=== PATIENT | female | born 1995 | race Caucasian/White ===

== ENCOUNTER 2017-01-09 21:13 | Emergency (ER) | payer MEDICAID ==
[~2017-01-09] VITALS: Ht 170.2 cm; Wt 75.5 kg
[2017-01-09 21:21] VITALS: BP 146/89
--- NOTE | 2017-01-09 22:20 | NUR ---
PT TAKEN TO [facility] [facility]
--- NOTE | 2017-01-09 22:47 | NUR ---
PT RETURN FROM [facility] TO LOBBY
--- NOTE | 2017-01-09 23:17 | NUR ---
PT TAKEN TO BED 7
--- NOTE | 2017-01-09 23:25 | NUR ---
21Y F CAME TO ER C/O OF VAGINAL BLEEDING FOR A WEEK NOW. BLEEDING GETTING MORE FREQUENT TODAY. DENIES PAIN. NO OTHER SYMPTOMS. V/S STABLE.
--- NOTE | 2017-01-09 23:28 | NUR ---
Dr. Mariscal evaluating patient at bedside.
[2017-01-09] MEDS ORDERED: NACL 0.9% 1,000 ML IV ONE (23:30)
[2017-01-09 23:42] LABS: ANION GAP 12.9 (8-16); CALCIUM 9.1 mg/dL (8.5-10.1); CARBON DIOXIDE 28.2 mmol/L (21-32); CREATININE 0.7 mg/dL (0.6-1.3); POTASSIUM 4.1 mmol/L (3.5-5.1)
[2017-01-09 23:49] LABS: ALBUMIN 4.3 g/dL (3.4-5.0); TOTAL BILIRUBIN 0.3 mg/dL (0.0-1.0); TOTAL PROTEIN, SERUM 8.3 g/dL (6.4-8.2)
[2017-01-09 23:53] LABS: HEMOGLOBIN 13.2 g/dL (12.0-16.0); MEAN CORPUSCULAR HEMOGLOBIN 29 pg (27-31); MEAN CORPUSCULAR HGB CONC 32 g/dL (33-37); MEAN CORPUSCULAR VOLUME 91 fL (80-94); PLATELET COUNT (AUTO) 234 K/uL (140-450); RED BLOOD CELL COUNT(AUTO) 4.62 MIL/uL (4.20-5.40); RED CELL DISTRIBUTION WIDTH 13.6 % (11.6-13.7); WHITE BLOOD COUNT (AUTO) 7.8 K/uL (4.8-10.8)
[2017-01-09 23:55] LABS: LYMPHOCYTES % (MANUAL) 27 % (20-46); MONOCYTES % (MANUAL) 7 % (5-12); NEUTROPHILS % (MANUAL) 66 (43-65)
[2017-01-09 23:56] LABS: INR 1.1 (0.8-1.2); PARTIAL THROMBOPLASTIN TIME 27.8 secs (22-35.6); PROTHROMBIN TIME 10.5 secs (10.8-13.4)
[2017-01-10 00:15] VITALS: BP 130/78
--- NOTE | 2017-01-10 00:15 | NUR ---
Patient discharged with v/s stable. Written and verbal after care instructions given and explained BY DR HARTMAN. Patient alert, oriented and verbalized understanding of instructions. Ambulatory with steady gait. All questions addressed prior to discharge. ID band removed. Patient advised to follow up with PMD. Rx of MOTRIN given. Patient educated on indication of medication including possible reaction and side effects. Opportunity to ask questions provided and answered.
== END 2017-01-10 00:15 | disposition home or self-care (01) ==
LOC: MED 21:13
DX: N94.6 Dysmenorrhea, unspecified (principal); R03.0 Elevated blood-pressure reading, without diagnosis of hypertension; Z32.02 Encounter for pregnancy test, result negative; Z88.0 Allergy status to penicillin
CPT/HCPCS: 36415; 76830; 76856; 80053; 81025; 84702; 85025; 85610; 85730; 96360; 99285; J7030

== ENCOUNTER 2017-09-06 15:21 | Emergency (ER) | payer MEDICAID, OTHER ==
[~2017-09-06] VITALS: Ht 170.2 cm; Wt 79.4 kg
[2017-09-06 15:28] VITALS: BP 110/75
--- NOTE | 2017-09-06 15:33 | NUR ---
Patient to bed 08.
--- NOTE | 2017-09-06 15:45 | NUR ---
PATIENT IS A 21 YO FEMALE BIB SELF FOR DOG BITE TO POSTERIOR RIGHT CALF BRUISING AND SMALL LACERATION TO LEG AWAKE AND ALERT BLEEDING CONTROLLED. NO ACUTE DITRESS.
--- NOTE | 2017-09-06 16:10 | NUR ---
WOUND CARE PROVIDED BY EMT WOUND CLEANED AND DRESSED.
[2017-09-06 16:49] VITALS: BP 110/75
== END 2017-09-06 16:49 | disposition home or self-care (01) ==
LOC: MED 15:21
DX: S81.851A Open bite, right lower leg, initial encounter (principal); Z88.0 Allergy status to penicillin; W54.0XXA Bitten by dog, initial encounter; Y93.89 Activity, other specified; Y92.410 Unspecified street and highway as the place of occurrence of the external cause; Y99.8 Other external cause status
CPT/HCPCS: 99283

== ENCOUNTER 2017-12-19 12:11 | Emergency (ER) | payer MEDICAID, OTHER ==
[~2017-12-19] VITALS: Ht 170.2 cm; Wt 77.7 kg
[2017-12-19 12:23] VITALS: BP 115/63
--- NOTE | 2017-12-19 12:30 | NUR ---
PT AMBULATED TO DENYS
--- NOTE | 2017-12-19 12:35 | NUR ---
c/o vomiting x yesterday >7 episodes ---- awoke today with lower abdominal mild cramping , no vag bleeding last bm yesterday, denies straining, denies dysuria . SKIN IS PINK/WARM/DRY; AAOX4 WITH EVEN AND STEADY GAIT; LUNGS CLEAR BL; HR EVEN AND REGULAR; PT DENIES ANY FEVER, CP, SOB, OR COUGH AT THIS TIME; PATIENT STATES PAIN OF 0/10 AT THIS TIME; VSS; ER MD MADE AWARE OF PT STATUS.
[2017-12-19] MEDS ORDERED: MULTIVITAMIN-12 10 ML, THIAMINE 100 MG, MAGNESIUM SULFATE 50% 2,000 MG, FOLIC ACID 5 MG... IV ONE ×5 (13:00)
[2017-12-19] MEDS ORDERED: FAMOTIDINE 20 MG/2 ML VIAL IVP ONE (13:00)
[2017-12-19] MEDS ORDERED: ONDANSETRON 4 MG/2 ML VIAL IVP ONE (13:00)
--- NOTE | 2017-12-19 13:51 | NUR ---
PT MOVED TO BED 2
[2017-12-19 13:54] LABS: BASOPHILS # (AUTO) 0.2 K/uL (0.00-0.22); EOSINOPHILS # (AUTO) 0.1 K/uL (0-0.4); EOSINOPHILS % (AUTO) 0.9 % (0.0-4.0); HEMATOCRIT 41.4 % (36-48); HEMOGLOBIN 13.4 g/dL (12.0-16.0); LYMPHOCYTES # (AUTO) 1.1 K/uL (2.5-16.5); LYMPHOCYTES % (AUTO) 13.6 % (20.5-51.1); MEAN CORPUSCULAR HEMOGLOBIN 29 pg (27-31); MEAN CORPUSCULAR HGB CONC 33 g/dL (33-37); MEAN CORPUSCULAR VOLUME 88 fL (80-94); MONOCYTES # (AUTO) 0.5 K/uL (0.8-1.0); MONOCYTES % (AUTO) 6.1 % (1.7-9.3); NEUTROPHILS # (AUTO) 6.5 K/uL (1.8-7.7); NEUTROPHILS % (AUTO) 77.4 % (42.2-75.2); PLATELET COUNT (AUTO) 236 K/uL (140-450); RED CELL DISTRIBUTION WIDTH 14.4 % (11.6-13.7); WHITE BLOOD COUNT (AUTO) 8.4 K/uL (4.8-10.8)
[2017-12-19 14:08] LABS: APPEARANCE,URINE CLEAR (CLEAR); BILIRUBIN,URINE NEGATIVE (NEGATIVE); BLOOD, URINE NEGATIVE (NEGATIVE); COLOR,URINE YELLOW (YELLOW); LEUKOCYTE ESTERASE ,URINE TRACE (NEGATIVE); NITRITE, URINE NEGATIVE (NEGATIVE); PH,URINE 7.5 (5.0-9.0); UGLUCOSE NEGATIVE (NEGATIVE)
[2017-12-19 14:11] LABS: ALBUMIN 4.1 g/dL (3.4-5.0); ANION GAP 12.6 (8-16); CARBON DIOXIDE 25.3 mmol/L (21-32); CREATININE 0.6 mg/dL (0.6-1.3); POTASSIUM 3.9 mmol/L (3.5-5.1); TOTAL BILIRUBIN 0.7 mg/dL (0.0-1.0)
[2017-12-19 14:18] LABS: RBC,URINE 0-5 (RARE) /HPF (0-5); WBC,URINE 60-80 /HPF (0-5)
--- NOTE | 2017-12-19 15:00 | NUR ---
PT IS RESTING IN BED, BUSBAND AT BEDSIDE, VSS, DENIES PAIN.
[2017-12-19 17:00] VITALS: BP 110/62
--- NOTE | 2017-12-19 17:00 | NUR ---
Patient discharged with v/s stable. Written and verbal after care instructions given and explained. Patient alert, oriented and verbalized understanding of instructions. Ambulatory with steady gait. All questions addressed prior to discharge. ID band removed. Patient advised to follow up with PMD. Rx of ZOFRAN, BP FOLINATAL PLUS B given. Patient educated on indication of medication including possible reaction and side effects. Opportunity to ask questions provided and answered.
== END 2017-12-19 17:00 | disposition home or self-care (01) ==
LOC: MED 12:11
DX: O21.0 Mild hyperemesis gravidarum (principal); Z3A.01 Less than 8 weeks gestation of pregnancy; Z88.0 Allergy status to penicillin
CPT/HCPCS: 36415; 76817; 80053; 81001; 82150; 83690; 84702; 84703; 85025; 86900; 86901; 87086; 87186; 96365; 96366; 96375; 99285; A9153; J2405; J3411; J3475; J3490; J7030

== ENCOUNTER 2018-01-12 10:37 | Emergency (ER) | payer MEDICAID, OTHER ==
[~2018-01-12] VITALS: Ht 170.2 cm; Wt 79.4 kg
[2018-01-12 10:47] VITALS: BP 113/74
--- NOTE | 2018-01-12 10:47 | NUR ---
Pt taken to bed 10.
--- NOTE | 2018-01-12 11:00 | NUR ---
PT COMES TO ED C/O ABD CRAMPING AND NAUSEA FOR 2 DAYS. PT IS 9 WEEKS . PT DENIES CP SOB OR DIZZINESS. PLACED ON ALL MONITORS, VS HELEN. AT BEDSIDE TO NIKA
--- NOTE | 2018-01-12 11:01 | NUR ---
Patient being evaluated by physician at bedside.
[2018-01-12] MEDS ORDERED: ACETAMINOPHEN EXTRA STRENGTH 500 MG TAB PO ONE (11:05)
[2018-01-12 11:17] VITALS: BP 115/78
== END 2018-01-12 11:18 | disposition home or self-care (01) ==
LOC: MED 10:37
DX: O26.891 Other specified pregnancy related conditions, first trimester (principal); R51 Headache; H92.03 Otalgia, bilateral; R11.0 Nausea; Z88.0 Allergy status to penicillin
CPT/HCPCS: 99283

== ENCOUNTER 2018-01-17 14:32 | Emergency (ER) | payer OTHER ==
[~2018-01-17] VITALS: Ht 170.2 cm; Wt 77.6 kg
[2018-01-17 14:45] VITALS: BP 132/81
[2018-01-17 15:09] LABS: BASOPHILS % (AUTO) 0.5 % (0.0-2.0); EOSINOPHILS % (AUTO) 0.5 % (0.0-4.0); HEMATOCRIT 39.1 % (36-48); LYMPHOCYTES # (AUTO) 1.1 K/uL (2.5-16.5); LYMPHOCYTES % (AUTO) 12.7 % (20.5-51.1); MEAN CORPUSCULAR HEMOGLOBIN 30 pg (27-31); MEAN CORPUSCULAR HGB CONC 33 g/dL (33-37); MEAN CORPUSCULAR VOLUME 89.5 fL (80-94); MONOCYTES # (AUTO) 0.5 K/uL (0.8-1.0); MONOCYTES % (AUTO) 5.7 % (1.7-9.3); NEUTROPHILS % (AUTO) 80.6 % (42.2-75.2); PLATELET COUNT (AUTO) 195 K/uL (140-450); RED BLOOD CELL COUNT(AUTO) 4.36 MIL/uL (4.20-5.40); RED CELL DISTRIBUTION WIDTH 16.3 % (11.6-13.7); WHITE BLOOD COUNT (AUTO) 8.7 K/uL (4.8-10.8)
[2018-01-17 15:10] LABS: APPEARANCE,URINE CLEAR (CLEAR); BILIRUBIN,URINE NEGATIVE (NEGATIVE); BLOOD, URINE 2+ (NEGATIVE); COLOR,URINE YELLOW (YELLOW); LEUKOCYTE ESTERASE ,URINE NEGATIVE (NEGATIVE); NITRITE, URINE NEGATIVE (NEGATIVE); PH,URINE 5.5 (5.0-9.0); UGLUCOSE NEGATIVE (NEGATIVE)
[2018-01-17 15:20] LABS: ANION GAP 12.1 (8-16); CARBON DIOXIDE 24.9 mmol/L (21-32); CREATININE 0.5 mg/dL (0.6-1.3)
[2018-01-17 15:21] LABS: RBC,URINE 0-5 (RARE) /HPF (0-5); WBC,URINE 0-5 (RARE) /HPF (0-5)
[2018-01-17 16:57] VITALS: BP 112/64
== END 2018-01-17 16:57 | disposition home or self-care (01) ==
LOC: MED 14:32
DX: O26.891 Other specified pregnancy related conditions, first trimester (principal); O20.9 Hemorrhage in early pregnancy, unspecified; Z88.0 Allergy status to penicillin
CPT/HCPCS: 36415; 76801; 80048; 81001; 81025; 84702; 85025; 86900; 86901; 87086; 99285; Q0092

== ENCOUNTER 2019-12-06 15:19 | Emergency (ER) | payer MEDICAID, OTHER ==
[~2019-12-06] VITALS: Ht 170.2 cm; Wt 81.6 kg
[2019-12-06 15:20] VITALS: BP 120/75
--- NOTE | 2019-12-06 15:58 | NUR ---
24 Y/O FEMALE PRESENTS WITH LEFT SIDED EAR PAIN X2 WEEKS. PT HAD AN EAR INFECTION TWO WEEKS AGO, WAS TREATED WITH ANTIBIOTICS AND COMPLETED ENTIRE COURSE. PT STATES SHES HAVING SLIGHT HEARING LOSS AND PAIN 5/10 IN LEFT EAR. DENIES ANY RECENT INJURY. DENIES CHILLS/FEVER. DENIES SOB/CP. RESP EVEN AND UNLABORED. NO DRAINAGE/FOUL ODOR COMING FROM EAR. NO REDNESS OBSERVED. AAOX4. CAP REFILL <3 NO PMH NKA
[2019-12-06 17:01] VITALS: BP 120/75
--- NOTE | 2019-12-06 17:01 | NUR ---
Patient discharged with v/s stable. Written and verbal after care instructions given and explained. Patient verbalized understanding. Ambulatory with steady gait. All questions addressed prior to discharge. Advised to follow up with PMD.
== END 2019-12-06 17:01 | disposition home or self-care (01) ==
LOC: MED 15:19
DX: H72.92 Unspecified perforation of tympanic membrane, left ear (principal); Z88.0 Allergy status to penicillin
CPT/HCPCS: 99281

== ENCOUNTER 2019-12-29 13:11 | Emergency (ER) | payer MEDICAID ==
[~2019-12-29] VITALS: Ht 170.2 cm; Wt 81.6 kg
[2019-12-29 13:14] VITALS: BP 122/75
[2019-12-29 13:58] VITALS: BP 122/75
== END 2019-12-29 13:59 | disposition home or self-care (01) ==
LOC: MED 13:19
DX: J02.8 Acute pharyngitis due to other specified organisms (principal); B96.89 Other specified bacterial agents as the cause of diseases classified elsewhere; Z88.0 Allergy status to penicillin
CPT/HCPCS: 99283

== ENCOUNTER 2020-02-27 22:11 | Emergency (ER) | payer MEDICAID ==
[~2020-02-27] VITALS: Ht 170.2 cm; Wt 84.8 kg
[2020-02-27 22:30] VITALS: BP 144/94
--- NOTE | 2020-02-27 22:37 | NUR ---
PT AMBULATED TO BED #6
--- NOTE | 2020-02-27 22:52 | NUR ---
24 YEAR OLD FEMALE COMPLAINS OF ABSCESS X 2-3 DAYS AGO THAT FORMED IN PUBIC REGION. PT STATES PAINFUL TO WALK DUE TO PAIN. PT AOX4, BREATHING EVEN AND UNLABORED, SKIN WARM AND DRY. BED IN LOWEST POSITION, LOCKED, BED RAIL UPX1. PMH - DENIES ALLERGIES - NKA
--- NOTE | 2020-02-27 23:04 | NUR ---
AWAITING FOR ERMD TO EXAMINE. PT IS AAOX4, QUETLY RESTING ON BED.
--- NOTE | 2020-02-27 23:22 | NUR ---
Dr. Del Cid examining patient.
[2020-02-27] MEDS ORDERED: LIDOCAINE MPF 1% 10 MG/ML VIAL INJ ONE (23:35)
--- NOTE | 2020-02-27 23:36 | NUR ---
FOR I & D ON THE AFFECTED CELULITIS AREA PER DR ROMO
[2020-02-27 23:50] VITALS: BP 136/81
--- NOTE | 2020-02-27 23:54 | NUR ---
Patient discharged with v/s stable. I & D done by Dr Del Cid with dressing intact.Written and verbal after care instructions given and explained. Patient alert, oriented and verbalized understanding of instructions. Ambulatory with steady gait. All questions addressed prior to discharge. ID band removed. Patient advised to follow up with PMD. Rx of BACTRIM DS, MOTRIN, NORCO given. Patient educated on indication of medication including possible reaction and side effects. Opportunity to ask questions provided and answered. Pt is ambulatory, and no complains noted.
== END 2020-02-27 23:54 | disposition home or self-care (01) ==
LOC: MED 22:11
DX: L02.214 Cutaneous abscess of groin (principal); Z88.0 Allergy status to penicillin
CPT/HCPCS: 10060; 99283; J2001; 99282

== ENCOUNTER 2021-03-30 22:36 | Emergency (ER) | payer MEDICAID, OTHER ==
[~2021-03-30] VITALS: Ht 170.2 cm; Wt 90.7 kg
[2021-03-30 22:44] VITALS: BP 129/90
--- NOTE | 2021-03-30 22:44 | NUR ---
TO BED AMBULATORY
--- NOTE | 2021-03-30 23:24 | NUR ---
Yodit rios in [facility] - 03/30/21 at [address] Baltazar examining patient.
--- NOTE | 2021-03-30 23:25 | NUR ---
PT BIB SELF FOR C/O RIGHT EAR PAIN X 4 DAYS. PT STATES "IT FEELS LIKE THERES WATER IN THERE. I CANT HEAR." PT REPORTS HX OF EAR INFECTIONS. NOTED REDNESS TO EAR, PT REPORTS SCRATCHING WITH FINGER D/T ITCHINESS. PT REPORTS PAIN /10. DENIER FEVER, CHILLS, N/V/D. MED HX: EAR INFECTIONS ALLERGIES: PENICILLINS
--- NOTE | 2021-03-30 23:28 | NUR ---
SENAIT AT BEDSIDE. CULTURE OF RIGHT EAR COLLECTED AND TAKEN TO LAB.
[2021-03-30] MEDS ORDERED: CIPR500T4 PO (23:36)
[2021-03-30] MEDS ORDERED: CIPR7.5S OT (23:36)
[2021-03-30 23:40] VITALS: BP 129/90
--- NOTE | 2021-03-30 23:40 | NUR ---
Patient discharged with v/s stable. Written and verbal after care instructions given and explained. Patient alert, oriented and verbalized understanding of instructions. Ambulatory with steady gait. All questions addressed prior to discharge. ID band removed. Patient advised to follow up with PMD. Rx of CIPRO AND CIPRODEX OTIC SUSPENSION given. Patient educated on indication of medication including possible reaction and side effects. Opportunity to ask questions provided and answered.
--- NOTE | 2021-04-02 10:40 | NUR ---
LATE ENTRY---Aerobic culture results received from lab. Results shown to Dr. Del Cid. No new orders needed at this time. Treatment appropriate. Copy placed in C&S folder.
== END 2021-03-30 23:40 | disposition home or self-care (01) ==
LOC: MED 22:36
DX: H66.001 Acute suppurative otitis media without spontaneous rupture of ear drum, right ear (principal); Z88.0 Allergy status to penicillin; Z90.49 Acquired absence of other specified parts of digestive tract
CPT/HCPCS: 87070; 87186; 99283